=== PATIENT | female | born 1980 | race Caucasian/White ===

== ENCOUNTER 2017-07-10 10:24 | Outpatient (CLI) | payer MEDICAID | END 2017-07-10 17:55 | disposition home or self-care (01) | LOC: OBT 10:24 → L-D 10:24 → OBT 17:55 | DX: O62.9 Abnormality of forces of labor, unspecified (principal); O09.523 Supervision of elderly multigravida, third trimester; Z3A.39 39 weeks gestation of pregnancy | CPT/HCPCS: 76818 ==